=== PATIENT | male | born 1970 | race Caucasian/White ===

== ENCOUNTER 2025-05-21 09:08 | Observation (INO) ==
[2025-05-21 09:58] LABS: MEAN PLATELET VOLUME 7.7 fL (7.4-11.0); RED CELL DISTRIBUTION WIDTH 17.1 % (11.6-16.5)
[2025-05-21] MEDS: D5 LR IV PRN (10:00)
[2025-05-21] MEDS: DUONEB 0.5 MG/3 MG (3 mL) NEB ONE (10:05)
[2025-05-21 10:06] LABS: CREATININE 2.14 mg/dL (0.70-1.30); eGFR NON BLACK RACES 34 (>60)
[2025-05-21] MEDS: D5 LR 1,000 ML 1,000 ML IV ONE (10:06)
[2025-05-21] MEDS: REGLAN INJ 10 MG VIAL IVP PRN (10:10)
[2025-05-21] MEDS: ZOFRAN INJ 4 MG VIAL IVP PRN (10:10)
[2025-05-21] MEDS: PEPCID 20 MG VIAL IVP PRN (10:10)
[2025-05-21] MEDS: NS 100 ML IV 100 ML ONE (10:15)
[2025-05-21] MEDS: ANCEF VIAL 1 GRAM ONE (10:15)
[2025-05-21] MEDS: ANCEF VIAL 1 GRAM IV PRN (10:15)
[2025-05-21 10:22] LABS: PLATELET MORPHOLOGY COMMENT NORMAL (NORMAL)
[2025-05-21] MEDS: VERSED IVP PRN (10:22)
[2025-05-21 10:23] VITALS: BMI 27.1
[2025-05-21] MEDS: DIPRIVAN VIAL 160 ML IVP PRN (10:27)
[2025-05-21] MEDS: FENTANYL VIAL INJ 100 mcg IVP PRN (10:27)
[2025-05-21] MEDS: ZEMURON 100 MG VIAL IVP PRN (10:27)
[2025-05-21] MEDS: BETADINE SOLN ONE (10:32)
[2025-05-21] MEDS: MARCAINE 0.25% INJ ONE (10:45)
[2025-05-21] MEDS: VANCOMYCIN HCL ONE (10:45)
[2025-05-21] MEDS: PRECEDEX INJ VIAL IVP PRN (10:45)
[2025-05-21] MEDS: KETAMINE HCL IV PRN (10:45)
[2025-05-21] MEDS: TOBRAMYCIN SULFATE ONE (10:45)
[2025-05-21] MEDS ORDERED: BENADRYL INJ 50 MG VIAL IVP PRN (10:54)
[2025-05-21] MEDS ORDERED: ZOFRAN INJ 4 MG VIAL IVP PRN ×2 (10:54→12:30)
[2025-05-21] MEDS ORDERED: DILAUDID INJ IVP PRN ×2 (10:54→12:34)
[2025-05-21] MEDS ORDERED: BARHEMSYS INJ IVP PRN (10:54)
[2025-05-21] MEDS: TORADOL 30 MG VIAL IVP PRN (11:00)
[2025-05-21] MEDS: OFIRMEV IV 1000 MG VIAL 1,000 MG/100 ML VIAL IV PRN (11:46)
[2025-05-21] MEDS: HYDROGEN PEROXIDE 3% ONE (11:56)
[2025-05-21] MEDS: EPHEDRINE SULFATE INJ IVP PRN (11:57)
[2025-05-21] MEDS: BRIDION IVP PRN (12:12)
[2025-05-21] MEDS ORDERED: PERCOCET TAB 5/325 MG PO PRN (12:30)
[2025-05-21] MEDS ORDERED: TYLENOL 325 MG TAB PO PRN (12:30)
[2025-05-21] MEDS: NS 1,000 ML IV 1,000 ML IV SCH (13:38)
[2025-05-21] MEDS: NEURONTIN CAP 300 MG PO SCH (13:39)
[2025-05-21] MEDS: ANCEF VIAL 1 GRAM 1 G in NS 100 ML IV 100 ML IV SCH (13:39)
[2025-05-21] MEDS ORDERED: ANCEF VIAL 1 GRAM IVP SCH (14:00)
[2025-05-21] MEDS ORDERED: ULTANE GAS IN ONE (14:05)
[2025-05-21] MEDS ORDERED: KETAMINE HCL ONE (14:05)
[2025-05-21] MEDS ORDERED: PRECEDEX INJ VIAL ONE (14:05)
[2025-05-21] MEDS: NORVASC TAB 5 MG PO SCH (18:26)
[2025-05-21] MEDS: BENADRYL INJ 50 MG VIAL IVP ONE (18:27)
[2025-05-21] MEDS: BENADRYL INJ 50 MG VIAL ONE (18:33)
[2025-05-21] MEDS: PEPCID 20 MG VIAL ONE (19:36)
[2025-05-21] MEDS: FENTANYL VIAL INJ 100 mcg ONE (19:36)
[2025-05-21] MEDS: VERSED ONE (19:36)
[2025-05-21] MEDS: OFIRMEV IV 1000 MG VIAL 1,000 MG/100 ML VIAL IV ONE (19:37)
[2025-05-21] MEDS: ZOFRAN INJ 4 MG VIAL ONE (19:37)
[2025-05-21] MEDS: BRIDION ONE (19:37)
[2025-05-21] MEDS: DIPRIVAN VIAL 20 ML ONE (19:37)
[2025-05-21] MEDS: TORADOL 30 MG VIAL ONE (19:37)
[2025-05-21] MEDS: REGLAN INJ 10 MG VIAL ONE (19:38)
[2025-05-21] MEDS: ZEMURON 100 MG VIAL ONE (19:38)
[2025-05-21] MEDS: EPHEDRINE SULFATE INJ ONE (19:38)
[2025-05-21] MEDS: SNACK - Diabetic Appropriate PO SCH (20:26)
[2025-05-21] MEDS: COLACE CAP 100 MG PO SCH (21:15)
[2025-05-22 03:48] VITALS: TEMP 97.5
[2025-05-22 05:59] LABS: COR NA(FOR HYPERGLY) 140.0 mmol/L (136-145); CREATININE 2.41 mg/dL (0.70-1.30); eGFR NON BLACK RACES 30.0 (>60)
[2025-05-22] MEDS: NovoLIN R (or HumuLIN R) SUBCUT PRN (06:01)
--- NOTE | 2025-05-22 07:01 | NOTE.SOAP ---
Soap Note Note for Day of Date of Exam: 05/22/25 Subjective Data Subjective Data: Patient stable, strikethrough minimal, patient denies issues overnight, pain controlled, did have lip swelling but given benadryl Objective Data Objective Data: Dressings removed, beads intact, pin sites with minimal drainage, dressing reapplied Assessment Assessment: Patient ok for d/c to home, renal artery MRI ordred from medicine, facial swelling is stable, patient given Kexylate for potassium levels Plan Plan: Patient to follow up outpatient with Dr. Brunner for post operative management Dr. Asencio messaged regarding pain regimen, patient receives methadone outpatient and will continue upon d/c
[2025-05-22] MEDS: KAYEXALATE SUSP PO ONE (08:20)
[2025-05-22] MEDS: ZESTRIL TAB 40 MG PO SCH (08:20)
[2025-05-22] MEDS: HYDROCHLOROTHIAZIDE 25 MG TAB PO SCH (08:20)
[2025-05-22] MEDS: LOVENOX INJ 40 MG SYR SC SCH (08:21)
[2025-05-22 08:46] VITALS: BP 123/58; PULSE 86; RESP 20; O2SAT 94
[2025-05-22] MEDS: METHADONE HCL PO SCH (10:06)
[2025-05-22] MEDS ORDERED: LANTUS SC SCH (21:00)
== END 2025-05-22 12:30 | disposition home or self-care (01) ==
LOC: SURG1 09:08 → MED/SURG 09:08
PROVIDERS: ADMIT Obstetrics & Gynecology Obstetrics; ATTEND Obstetrics & Gynecology Obstetrics
PROC: APEXFIX (2025-05-21 10:00)
PROC: DEBRIDE (2025-05-21 10:00)
DX: M21.172 Varus deformity, not elsewhere classified, left ankle; I10 Essential (primary) hypertension; M21.6X2 Other acquired deformities of left foot; Z72.0 Tobacco use; G89.18 Other acute postprocedural pain; E11.621 Type 2 diabetes mellitus with foot ulcer; Z79.4 Long term (current) use of insulin; L97.424 Non-pressure chronic ulcer of left heel and midfoot with necrosis of bone; R22.0 Localized swelling, mass and lump, head; E11.65 Type 2 diabetes mellitus with hyperglycemia; M24.572 Contracture, left ankle; E11.42 Type 2 diabetes mellitus with diabetic polyneuropathy; M86.672 Other chronic osteomyelitis, left ankle and foot

== ENCOUNTER 2025-09-17 07:26 | Observation (INO) ==
[2025-09-17] MEDS ORDERED: SUPRANE IN ONE (07:30)
[2025-09-17] MEDS ORDERED: KETAMINE HCL ONE (07:30)
[2025-09-17 07:51] VITALS: BMI 27.8
[2025-09-17] MEDS: NS 1,000 ML IV 1,000 ML ONE (07:53)
[2025-09-17] MEDS: VERSED ONE (08:03)
[2025-09-17] MEDS: FENTANYL VIAL INJ 100 mcg ONE (08:04)
[2025-09-17] MEDS: ZOFRAN INJ 4 MG VIAL ONE (08:06)
[2025-09-17] MEDS: DIPRIVAN VIAL 20 ML ONE (08:07)
[2025-09-17] MEDS ORDERED: BENADRYL INJ 50 MG VIAL IVP PRN (08:15)
[2025-09-17] MEDS ORDERED: ZOFRAN INJ 4 MG VIAL IVP PRN (08:15)
[2025-09-17] MEDS ORDERED: BARHEMSYS INJ IVP PRN (08:15)
[2025-09-17] MEDS: PEPCID 20 MG VIAL ONE (08:19)
[2025-09-17] MEDS: NS 1,000 ML IV 0 ML IV PRN (08:22)
[2025-09-17] MEDS: BETADINE SOLN ONE (08:22)
[2025-09-17] MEDS: ZOFRAN INJ 4 MG VIAL IVP PRN (08:23)
[2025-09-17] MEDS: VERSED IVP PRN (08:23)
[2025-09-17] MEDS: PEPCID 20 MG VIAL IVP PRN (08:23)
[2025-09-17] MEDS: XYLOCAINE 2 % (PLAIN) ONE (08:27)
[2025-09-17] MEDS: XYLOCAINE 2 % (PLAIN) IVP PRN (08:28)
[2025-09-17] MEDS: DIPRIVAN VIAL 200 ML IVP PRN (08:28)
[2025-09-17] MEDS: ProvayBLUE 0.5% ONE (08:43)
[2025-09-17] MEDS: MARCAINE 0.25% INJ ONE (08:43)
[2025-09-17] MEDS: EPHEDRINE SULFATE INJ ONE (08:54)
[2025-09-17] MEDS: EPHEDRINE SULFATE INJ IVP PRN (08:57)
[2025-09-17] MEDS: KETAMINE HCL IV PRN (09:12)
[2025-09-17] MEDS: FENTANYL VIAL INJ 100 mcg IVP PRN (09:13)
[2025-09-17] MEDS: PRECEDEX INJ VIAL ONE (09:16)
[2025-09-17] MEDS: PRECEDEX INJ VIAL IVP PRN (09:57)
[2025-09-17] MEDS ORDERED: TYLENOL 325 MG TAB PO PRN (10:16)
[2025-09-17] MEDS: DILAUDID INJ ONE (10:31)
[2025-09-17] MEDS: DILAUDID INJ IVP PRN ×3 (10:33→16:59)
[2025-09-17] MEDS: TORADOL 30 MG VIAL ONE (11:08)
[2025-09-17] MEDS: OFIRMEV IV 1000 MG VIAL 1,000 MG/100 ML VIAL IV ONE (11:15)
[2025-09-17] MEDS: NS 1,000 ML IV 1,000 ML IV SCH (12:32)
[2025-09-17] MEDS: METHADONE HCL PO PRN (13:06)
[2025-09-17] MEDS: COLACE CAP 100 MG PO SCH (21:49)
[2025-09-17] MEDS: NEURONTIN TAB 600 MG PO SCH (21:49)
[2025-09-18] MEDS: DILAUDID INJ IVP PRN (00:13)
[2025-09-18 03:54] VITALS: O2SAT 95
[2025-09-18 05:55] LABS: COR NA(FOR HYPERGLY) 138.0 mmol/L (136-145); CREATININE 1.63 mg/dL (0.70-1.30); eGFR NON BLACK RACES 47.0 (>60)
[2025-09-18 08:15] VITALS: BP 140/78; PULSE 81; TEMP 99.5
--- NOTE | 2025-09-18 08:28 | NOTE.SOAP ---
Soap Note Note for Day of Date of Exam: 09/18/25 Subjective Data Subjective Data: Patient was seen and examined at bedside. Patient states he did have pain overnight with some drainage to his left lower extremity. He is not experiencing any shortness of breath, chest pain, calf tenderness or pin site drainage at this time. Objective Data Objective Data: Dressing was removed. External fixator noted to the left lower extremity and is rectus at this time. CFT is instantaneous to the amputation site of the left foot. Xeroform noted over the surgical site. No signs of infection or hematoma present. Compartments of the leg are soft at this time. Wrinkles are appreciated throughout the leg, likely due to reduced swelling to the lower extremity. No calf tenderness or signs of infection at this time. 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 Plan Plan: - Patient receives Clindamycin 600 mg IV at [facility] once a day, I have ordered it for today here- please administer before discharge - Patient can be discharged home from our standpoint - Patient takes Methadone outpatient and had prescription recently filled - patient to start Aspirin 325 mg, script sent to pharmacy - patient to only [facility] for transfers - please keep casper wraps on left leg - patient to follow up outpatient with Dr. Brunner next week, he is to keep his dressing intact until appointment - extra sponges were provided for patient and are noted at bedside, those are to go home with him Please contact with any questions!
[2025-09-18] MEDS: HYDROCHLOROTHIAZIDE 25 MG TAB PO SCH (08:49)
[2025-09-18] MEDS: ASPIRIN PO SCH (08:49)
[2025-09-18] MEDS: CLEOCIN 600 MG IV PREMIX 600 MG/50 ML BAG IV SCH (09:23)
[2025-09-18 12:09] VITALS: RESP 20
== END 2025-09-18 11:00 | disposition home or self-care (01) ==
LOC: MED/SURG 07:26 → SURG1 07:26
PROVIDERS: ADMIT Obstetrics & Gynecology Obstetrics; ATTEND Obstetrics & Gynecology Obstetrics
DX: T85.9XXA Unspecified complication of internal prosthetic device, implant and graft, initial encounter; M24.572 Contracture, left ankle; E11.65 Type 2 diabetes mellitus with hyperglycemia; R26.81 Unsteadiness on feet; M86.8X6 Other osteomyelitis, lower leg; Z79.4 Long term (current) use of insulin; E83.51 Hypocalcemia; R94.4 Abnormal results of kidney function studies; M25.572 Pain in left ankle and joints of left foot; L97.428 Non-pressure chronic ulcer of left heel and midfoot with other specified severity; M62.81 Muscle weakness (generalized); M19.272 Secondary osteoarthritis, left ankle and foot; G89.18 Other acute postprocedural pain